=== PATIENT | female | born 1990 | race Caucasian/White ===

== ENCOUNTER 2017-10-22 18:08 | Emergency (ER) | payer SELFPAY ==
[~2017-10-22] VITALS: Ht 170.2 cm; Wt 118.2 kg
[2017-10-22 18:10] VITALS: BP 134/78; PULSE 101; TEMP 97.8
[2017-10-22] MEDS ORDERED: NORCO 325 MG-51 TAB PO (18:36)
[2017-10-22] MEDS ORDERED: AMOXICILLIN 50500 MG PO (18:36)
== END 2017-10-22 19:08 | disposition home or self-care (01) ==
LOC: COL.ER 18:08
DX: K02.9 Dental caries, unspecified (principal); F17.210 Nicotine dependence, cigarettes, uncomplicated

== ENCOUNTER 2018-03-30 23:55 | Emergency (ER) | payer SELFPAY ==
[~2018-03-30] VITALS: Ht 162.6 cm; Wt 100.0 kg
[~2018-03-30 23:55] MED LIST: AMOXICILLIN 50500 MG PO; NORCO 325 MG-51 TAB PO
[2018-03-30 23:59] VITALS: TEMP 98
[2018-03-31 00:30] LABS: COLLECTION METHOD CLEAN CATCH
[2018-03-31 00:38] LABS: BASO % 0.4 % (0.0-2.0); EOS # 0.1 (0.0-0.7); EOS % 1.1 % (0-4.0); GRAN # 8.7 (1.4-6.5); GRAN % 79.6 % (42.2-75.2); HEMOGLOBIN 13.1 g/dl (12.5-16.0); LYMPH # 1.4 (1.2-3.4); LYMPH % 13.1 % (20.0-51.0); MEAN CELL VOLUME 84 fl (80.0-100.0); MEAN CORPUSCULAR HEMOGLOBIN 28 pg (27.0-31.0); MEAN CORPUSCULAR HGB CONC 34 g/dl (33.0-37.0); MEAN PLATELET VOLUME 9.6 fl (7.4-10.4); MONO # 0.6 (0.1-0.6); MONO % 5.5 % (1.7-9.3); PLATELET COUNT 257 K/mm3 (130-400); RED BLOOD COUNT 4.64 M/mm3 (4.10-5.30); REDCELL DISTRIBUTION WIDTH-CV 13.2 % (11.5-14.5)
[2018-03-31] MEDS ORDERED: MARNATAL-F1 CAP PO (00:39)
[2018-03-31 00:45] LABS: MUCOUS Present /lpf; PH 6 (5-8); URINE APPEARANCE Hazy; URINE BACTERIA Rare /hpf; URINE BILIRUBIN Negative (NEGATIVE); URINE BLOOD Negative (NEGATIVE); URINE COLOR Yellow; URINE GLUCOSE Negative (NEGATIVE); URINE KETONE Trace (NEGATIVE); URINE LEUKOCYTE ESTERASE Negative (NEGATIVE); URINE NITRATE Negative (NEGATIVE); URINE PROTEIN(semi-quant) Negative (NEGATIVE); URINE RBC 0-2 /hpf; URINE UROBILINOGEN Negative (NEGATIVE)
[2018-03-31 00:49] LABS: ALBUMIN 4.1 gm/dL (3.5-5.0); BILIRUBIN,TOTAL 0.4 mg/dL (0.0-1.0); CALCIUM 9.3 mg/dL (8.4-10.2); CREATININE, serum 0.66 mg/dL (0.52-1.25); POTASSIUM 3.8 mmol/L (3.4-5.0); TOTAL PROTEIN 7.7 gm/dL (6.4-8.2)
[2018-03-31] MEDS ORDERED: PHENERGAN 25 TA25 MG PO (02:40)
[2018-03-31 02:53] VITALS: BP 132/74; PULSE 82
== END 2018-03-31 02:54 | disposition home or self-care (01) ==
LOC: COL.ER 23:55
PROVIDERS: Physician Assistant
DX: O21.9 Vomiting of pregnancy, unspecified (principal); O99.89 Other specified diseases and conditions complicating pregnancy, childbirth and the puerperium; R19.7 Diarrhea, unspecified; Z3A.01 Less than 8 weeks gestation of pregnancy

== ENCOUNTER 2018-09-06 20:55 | Outpatient (CLI) | payer MEDICAID ==
[~2018-09-06] VITALS: Ht 172.7 cm; Wt 123.6 kg
[~2018-09-06 20:55] MED LIST changes: +MARNATAL-F1 CAP PO; +PHENERGAN 25 TA25 MG PO
[2018-09-06 21:20] VITALS: BP 130/69; PULSE 101; TEMP 97.9
[2018-09-06 21:33] LABS: COLLECTION METHOD CATHETER
[2018-09-06 21:34] VITALS: BP 130/69; PULSE 101; TEMP 97.9
[2018-09-06 21:49] LABS: AMORPHOUS CRYSTAL Present /uL; MUCOUS Present /lpf; PH 7 (5-8); SQUAMOUS EPITHELIAL 0-2 /hpf; URINE APPEARANCE Cloudy; URINE BACTERIA None Seen /hpf; URINE BILIRUBIN Negative (NEGATIVE); URINE BLOOD Negative (NEGATIVE); URINE COLOR Yellow; URINE GLUCOSE 1+ (NEGATIVE); URINE KETONE Negative (NEGATIVE); URINE LEUKOCYTE ESTERASE Negative (NEGATIVE); URINE NITRATE Negative (NEGATIVE); URINE PROTEIN(semi-quant) Negative (NEGATIVE); URINE RBC 0-2 /hpf; URINE UROBILINOGEN Negative (NEGATIVE); URINE WBC None Seen /hpf
== END 2018-09-06 22:30 | disposition home or self-care (01) ==
LOC: LDRO 20:55
PROVIDERS: Obstetrics & Gynecology
DX: O99.89 Other specified diseases and conditions complicating pregnancy, childbirth and the puerperium (principal); R33.9 Retention of urine, unspecified; Z3A.37 37 weeks gestation of pregnancy

== ENCOUNTER 2018-10-28 21:29 | Outpatient (CLI) | payer MEDICAID ==
[~2018-10-28] VITALS: Ht 165.1 cm; Wt 135.0 kg
--- NOTE | 2018-10-28 21:35 | NUR ---
Pt arrives to unit ambulatory with complaint of decreased movement. Pt states she hasn't felt her baby move since this morning. Pt is a G1 and 35 weeks. Pt denies feeling contractions, LOF, or vaginal bleeding. Denies headaches, blurry vision, or RUQ pain. EFM and toco explained and applied. Vital signs obtained. Assessment started. Plan of care discussed, all questions answered.
[2018-10-28 21:45] VITALS: BP 123/64; PULSE 115; TEMP 97.8
--- NOTE | 2018-10-28 22:20 | NUR ---
Pt able to feel baby move. Pt discharged home at this time. kick count education provided. Discharge instructions reviewed, pt verbalized understanding. Pt seen ambulating off unit.
== END 2018-10-28 22:20 | disposition home or self-care (01) ==
LOC: LDRO 21:29
DX: O36.8130 Decreased fetal movements, third trimester, not applicable or unspecified (principal); Z3A.35 35 weeks gestation of pregnancy

== ENCOUNTER 2018-11-24 01:35 | Inpatient (IN) | payer MEDICAID ==
[2018-11-24] VITALS (75 sets, daily range): BP systolic 90–161; BP diastolic 44–86; PULSE 81–122; TEMP 97.9–99.8
[~2018-11-24] VITALS: Ht 170.2 cm; Wt 137.3 kg
--- NOTE | 2018-11-24 01:40 | NUR ---
Pt arrived on unit via wheelchair escorted by family with complaints of SROM. Pt reports large gush of clear fluid at 0030. Pt reports contractions worsening with SROM. Pt also reports normal movement. EFM and toco monitors started. Vital signs WNL. Amnitrace positive. SVE by this RN . Spoke with Dr. Velázquez regarding pt's arrival. SVE and FHR tracing reviewed. Orders for labor admission received. Plan of care reviewed with pt.
[2018-11-24 03:26] LABS: BASO % 0.2 % (0.0-2.0); EOS # 0.1 (0.0-0.7); EOS % 0.4 % (0-4.0); GRAN # 11.8 (1.4-6.5); GRAN % 83.5 % (42.2-75.2); HEMATOCRIT 34.1 % (37.0-47.0); HEMOGLOBIN 11.4 g/dl (12.5-16.0); LYMPH # 1.4 (1.2-3.4); LYMPH % 10.1 % (20.0-51.0); MEAN CELL VOLUME 84 fl (80.0-100.0); MEAN CORPUSCULAR HEMOGLOBIN 28 pg (27.0-31.0); MEAN CORPUSCULAR HGB CONC 33 g/dl (33.0-37.0); MONO # 0.8 (0.1-0.6); MONO % 5.3 % (1.7-9.3); PLATELET COUNT 206 K/mm3 (130-400); RED BLOOD COUNT 4.04 M/mm3 (4.10-5.30); REDCELL DISTRIBUTION WIDTH-CV 15.1 % (11.5-14.5)
[2018-11-24 03:43] LABS: TRICYCLIC ANTIDEPRESS URINE NEGATIVE
--- NOTE | 2018-11-24 04:00 | NUR ---
0400- Pt requesting in sit on the edge of the bed while waiting for TEXTILE SCREEN PRINTER for epidural placement. SPO2 monitor started. EFM intermittently tracing maternal HR as coorelates with SPO2 monitor. 0411- Sudheer Belcher CRNA at the bedside for epidural placement. 0422- Single shot given per TEXTILE SCREEN PRINTER. See anesthesia record for details. 0430- Assisted pt back to bed in supine with left wedge position. EFM and toco monitors adjusted. 0436- Audible FHR decel down to 90's. Repositioned pt to right lateral. FHR returned to baseline 150's. 0445- FHR decel down to 80's. O2 at 10L via facemask started. FHR back to baseline 155.
--- NOTE | 2018-11-24 06:20 | NUR ---
0620-Recieved bedside shift report from AMISH Pate Patient RL with IVF to left forearm, ANGUS inplace, [place] to DD with clear yellow urine, and oxygen via nc at 10 l/min. Reviewed plan of care, no current needs. VSS will continue to monitor.
--- NOTE | 2018-11-24 07:30 | NUR ---
0730-Dr. Estrada on unit. Reviews FHR monitor. In to see patient and discuss plan of care. No new orders at this time.
--- NOTE | 2018-11-24 08:45 | NUR ---
0845-Dr. Estrada on unit, reviews R monitor. 0850-SVE by this RN, /-2 bloody show. Repositioned LL, peanut ball removed. Updated MD on SVE orders to start pitocin. 09-Pitocin started per orders. Verified by Lindsay WELLINGTON.
--- NOTE | 2018-11-24 09:35 | NUR ---
0935-DIFFICULTY TRACING FHR DUE TO MATERNAL HABITUS AND MOVEMENT. RN ADJUSTS EFM. 1025-SVE 6-/-2, REPOSITONED RL ADJUSTED EFM, ORAL TEMP 99.2 DEGREES F. LR BAG #3 UP, SEE EMAR 1050-MD CALLS UNIT FOR AN UPDATE, REVIEWED FHR MONITOR AND SVE WITH MD. NO NEW ORDERS. 1110-REPOSITIONED LL, DIFFICULTY TRACING FHR RN FREQUENTLY READJUSTING EFM. 1200-PATIENT COMPLAINS OF HEADACHE. UPDATED MD OF PATIENS COMPLAINT, REVIEWED VSS WITH MD. ORDER FOR 1 GRAM PO TYLENOL NOW, GIVEN, SEE EMAR. 1210-PATIENT REQUESTS SVE, /-2 BY THIS RN REPOSITIONED HF WITH LEFT HIP WEDGE. DIFFICULTY TRACING FHR. RN FREQUENTLY READJUSTS EFM. 1215-DR. CHADWICK ON UNIT, IN TO SEE PATIENT AND UPDATE ON PLAN OF CARE. NO NEW ORDERS. 1320-SVE BY THIS RN /-2, REPOSITIONED WL WITH PEANUT. ORAL TEMP 98.6 1427-SVE /-1, REPOSITIONED WR. 1450-INCREASED PIT TO 8MU/MIN 1500-DR. CHADWICK ON UNIT, SVE BY /+1, ORDERS TO HOLD PIT AT 8MU/MIN UNLESS CONTRACTIONS START TO SPACE OUT. REPOSITONED BACK WR WITH PEANUT BALL.
--- NOTE | 2018-11-24 18:25 | NUR ---
1824- BEDSIDE REPORT RECIEVED. 1836- DR CHADWICK AT BEDSIDE AND ASSESSES PT PROGRESS. HE ANSWERS PT QUESTIONS AND UPDATES ON PLAN OF CARE. PT ENCOURAGED TO CONTINUE PUSHING WITH CONTRACTIONS. 1922- DR CHADWICK AT BEDSIDE AND ASSESSES PT PROGRESS. HE ANSWERS PT QUESTIONS AND UPDATES ON PLAN OF CARE. PT ENCOURAGED TO CONTINUE PUSHING WITH CONTRACTIONS. 2033- DR CHADWICK AT BEDSIDE AND ASSESSES PT PROGRESS. PT HAS MADE MINIMAL PROGRESS. HE DISCUSSES ALTERNATIVE METHODS FOR DELIVERY INCLUDING FORCEPS AND VACUUM. HE ANSWERS PT QUESTIONS AND DISCUSSES RISK AND BENEFIT OF EACH. PT AGREES TO ATTEMPT VACUUM DELIVERY. NURSERY UPDATED ON PLAN OF CARE. 2044- VACUUM TIME OUT AND VACUUM PLACED PER DR CHADWICK. PT CONTINUES TO PUSH WITH CONTRACTIONS AND DR CHADWICK APPLIES TRACTION WITH THE VACUUM. TOTAL TIME OF VACUUM IN PLACE IS 18MIN. TOTAL TRACTION TIME OF VACUUM IS 200SEC. TOTAL POPOFFS 4. 2102- VACUUM ASSISTED VAGINAL DELIVERY OF VIABLE FEMALE. TO MOTHER'S ABDOMEN AND CARE OF NURSERY STAFF. CORD GASES OBTAINED BY DR CHADWICK. 2107- SPONTANEOUS DELIVERY OF PLACENTA, EXAMINED BY DR CHADWICK, REPAIR OF THIRD DEGREE IN PROGRESS. 2129- REPAIR COMPLETE. PERICARE PROVIDED. ICEPACK TO PERINEUM. FEET DOWN FROM FOOTPLATES AND RECOVERY STARTED.
--- NOTE | 2018-11-24 19:17 | NUR ---
1650-SVE /+2, DR. CHADWICK UPDATED ON PATIENT. WILL BEGIN PUSHING. 1715-GAUTAM DISCONTINUED DRAINED 650ML RED TO BROWN SEDIMENT URINE. 1718-PATIENT BEINGS PUSHING WITH CONTRACTIONS. RN COACHES PATIENT. PATIENT MOVES VERTEX VERY LITTLE. 1730-EPIDURAL PAUSED. PIT INCREASED TO 10MU/MIN. CONTINUE TO PUSH WITH PATIENT THROUGH CONTRACTIONS. 1750-EPIDURAL RESUMED. PATIENT MAKING MIN PROGRESS OF MOVING VERTEX, ENCOURAGED PATIENT. PATIENT TEARFUL. 1805-DR. CHADWICK UPDATED ON PATIENT. SEE PHYSICIAN NOTIFICATION. 1830-REPORTED OFF TO AMISH HEWITT WHO ASSUMES CARE OF PATIENT AT THIS TIME.
[2018-11-25 00:30] VITALS: BP 110/51; PULSE 115
--- NOTE | 2018-11-25 01:40 | NUR ---
0140- PT STILL UNABLE TO LIFT LEGS OFF BED AT THIS TIME. STATES SHE IS TOO TIRED TO MOVE ANYWAY. NURSE OFFERS BEDPAN SO PT MAY VOID, PT DECLINES SAYING SHE IS TOO TIRED TO "PUSH PEE OUT." NURSE OFFERS STRAIGHT CATH AND PT AGREES. 0145- STRAIGHT CATH FOR 500ML. PERICARE, CLEAN GOWN, BUTTOCKS PAD, AND ICEPACK PROVIDED. PT BOOSTED UP IN BED. PT ENCOURAGED TO MOVE HER LEGS AROUND IN BED TO HELP EPIDURAL WEAR OFF. PT VERBALIZES UNDERSTANDING.
--- NOTE | 2018-11-25 02:37 | NUR ---
Assumed care at this time.
[2018-11-25 04:30] VITALS: BP 93/44; PULSE 104; TEMP 98.2
--- NOTE | 2018-11-25 04:30 | NUR ---
Woke at this time. Able to hold legs off bed bilaterally. VS obtained. Fundus firm, midline at the umbilicus. Labia majora noted to be swollen. Ice pack to perineum. Ambulated well to room at this time. Upon entering room pt reports needing to void. Voided 100mls; educated on perineum care. Ambulated to bed and oriented to room. Questions invited and answered.
[2018-11-25 07:03] LABS: HEMATOCRIT 27.5 % (37.0-47.0); HEMOGLOBIN 8.7 g/dl (12.5-16.0)
[2018-11-25 07:15] VITALS: BP 109/48; PULSE 97; TEMP 97.8
--- NOTE | 2018-11-25 09:18 | NUR ---
Initial visit; Mom thanked Civil Defense Director for offering congratulations and God's blessings for the of their daughter. Civil Defense Director thanked family for choosing [facility].
[2018-11-25 10:50] VITALS: BP 120/70; PULSE 106; TEMP 97.8
[2018-11-25 16:12] VITALS: BP 115/57; PULSE 101; TEMP 97.6
--- NOTE | 2018-11-25 18:46 | NUR ---
In bed feeding baby at bottle. Call light and belongings in reach. Cluttered cleared and trash taken out by RN. D/c board updated, POC for evening discussed.
--- NOTE | 2018-11-25 19:05 | NUR ---
BEDSIDE REPORT RECEIVED. CARE TAKEN OVER BY THIS RN.
[2018-11-25 19:28] VITALS: BP 104/54; PULSE 104; TEMP 97.7
[2018-11-26 07:18] VITALS: BP 100/48; PULSE 88; TEMP 97.5
[2018-11-26] MEDS ORDERED: PERCOCET 325 MG1 TA2 PO (08:15)
[2018-11-26] MEDS ORDERED: IBU600 MG PO (08:15)
--- NOTE | 2018-11-26 13:29 | NUR ---
JENN met with patient. Father of baby is currently in retirement but will be getting out in January and will be involved. Patient's reports she has multiple people for support, including her aunt, neighbor, grandma, and FOB's mother. She also reports she has WIC and a carseat. 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 Patient's drug screens have also come back negative. JENN provided resouce packet.
[2018-11-26 16:54] VITALS: BP 127/73; PULSE 109; TEMP 98
[2018-11-26 21:00] VITALS: BP 101/54; PULSE 104; TEMP 98
--- NOTE | 2018-11-26 23:55 | NUR ---
0004- DISCHARGE INSTRUCTIONS FOR PT GIVEN AND QUESTIONS ANSWERED. PT GIVEN SCRIPT FOR PERCOCET. BORDER STATUS DISCUSSED AND PT DENIES FURTHER QUESTIONS. PAPERWORK SIGNED. 5533- PT DISMISSED TO BORDER STATUS AT THIS TIME.
== END 2018-11-26 23:59 | disposition home or self-care (01) | DRG 768 ==
LOC: LDRO 01:35 → LDR 02:39 → OB 02:39
PROVIDERS: Obstetrics & Gynecology; ADMIT Obstetrics & Gynecology
PROC: 10D07Z6 Extraction of Products of Conception, Vacuum, Via Natural or Artificial Opening (ICD-10-PCS; principal; 2018-11-24)
PROC: 0DQR0ZZ Repair Anal Sphincter, Open Approach (ICD-10-PCS; 2018-11-24)
PROC: 0W8NXZZ Division of Female Perineum, External Approach (ICD-10-PCS; 2018-11-24)
DX: O42.02 Full-term premature rupture of membranes, onset of labor within 24 hours of rupture (principal); Z37.0 Single live birth; O70.20 Third degree perineal laceration during delivery, unspecified; O99.214 Obesity complicating childbirth; Z3A.38 38 weeks gestation of pregnancy; O36.63X0 Maternal care for excessive fetal growth, third trimester, not applicable or unspecified; O76 Abnormality in fetal heart rate and rhythm complicating labor and delivery
CPT/HCPCS: J2590; J2795; J7120

== ENCOUNTER 2018-12-29 18:51 | Emergency (ER) | payer MEDICAID ==
[~2018-12-29] VITALS: Ht 165.1 cm; Wt 130.0 kg
[~2018-12-29 18:51] MED LIST changes: +IBU600 MG PO; +PERCOCET 325 MG1 TA2 PO
[2018-12-29 20:04] LABS: COLLECTION METHOD CLEAN CATCH
[2018-12-29 20:13] LABS: BASO % 0.3 % (0.0-2.0); EOS # 0.1 (0.0-0.7); GRAN # 5.2 (1.4-6.5); GRAN % 81.4 % (42.2-75.2); HEMOGLOBIN 11.2 g/dl (12.5-16.0); LYMPH # 0.7 (1.2-3.4); LYMPH % 10.4 % (20.0-51.0); MEAN CELL VOLUME 83 fl (80.0-100.0); MEAN CORPUSCULAR HEMOGLOBIN 26 pg (27.0-31.0); MEAN CORPUSCULAR HGB CONC 31 g/dl (33.0-37.0); MEAN PLATELET VOLUME 9.3 fl (7.4-10.4); MONO # 0.4 (0.1-0.6); MONO % 5.6 % (1.7-9.3); PLATELET COUNT 243 K/mm3 (130-400); RED BLOOD COUNT 4.36 M/mm3 (4.10-5.30); REDCELL DISTRIBUTION WIDTH-CV 14.9 % (11.5-14.5)
[2018-12-29 20:24] LABS: PH 6 (5-8); URINE APPEARANCE Hazy; URINE BACTERIA None Seen /hpf; URINE BILIRUBIN Negative (NEGATIVE); URINE BLOOD Negative (NEGATIVE); URINE COLOR Yellow; URINE GLUCOSE Negative (NEGATIVE); URINE KETONE Negative (NEGATIVE); URINE LEUKOCYTE ESTERASE 2+ (NEGATIVE); URINE NITRATE Negative (NEGATIVE); URINE PROTEIN(semi-quant) Negative (NEGATIVE); URINE UROBILINOGEN Negative (NEGATIVE)
[2018-12-29 20:42] LABS: ALBUMIN 4.3 gm/dL (3.5-5.0); BILIRUBIN,TOTAL 0.2 mg/dL (0.0-1.0); CALCIUM 9.4 mg/dL (8.4-10.2); CREATININE, serum 0.69 mg/dL (0.52-1.25); MAGNESIUM 1.6 mg/dL (1.6-2.3); POTASSIUM 4.3 mmol/L (3.4-5.0); TOTAL PROTEIN 7.6 gm/dL (6.4-8.2)
[2018-12-29] MEDS ORDERED: CEFTIN500 MG PO (22:36)
[2018-12-29] MEDS ORDERED: NORCO 325 MG-51 TAB PO (22:36)
[2018-12-29] MEDS ORDERED: TAMIFLU 75MG75 MG PO (22:36)
[2018-12-29] MEDS ORDERED: FLEXERIL 1010 MG/TAB PO (22:36)
[2018-12-29 23:14] VITALS: BP 117/70; PULSE 88; TEMP 97.7
== END 2018-12-29 23:15 | disposition home or self-care (01) ==
LOC: COL.ER 18:51
PROVIDERS: Emergency Medicine
DX: N39.0 Urinary tract infection, site not specified (principal); M54.41 Lumbago with sciatica, right side; J10.1 Influenza due to other identified influenza virus with other respiratory manifestations
CPT/HCPCS: A4216; J0696; J1170; J7030

== ENCOUNTER 2019-08-29 21:39 | Emergency (ER) | payer SELFPAY ==
[~2019-08-29] VITALS: Ht 165.1 cm; Wt 118.2 kg
[~2019-08-29 21:39] MED LIST changes: +CEFTIN500 MG PO; +FLEXERIL 1010 MG/TAB PO; +TAMIFLU 75MG75 MG PO
[2019-08-29 21:43] VITALS: BP 115/59; TEMP 97.8
[2019-08-29] MEDS ORDERED: NORCO 325 MG-51 TAB PO (22:28)
[2019-08-29] MEDS ORDERED: PEN-VEE K500 MG PO (22:28)
[2019-08-29 22:39] VITALS: PULSE 90
== END 2019-08-29 22:41 | disposition home or self-care (01) ==
LOC: COL.ER 21:39
DX: K04.7 Periapical abscess without sinus (principal); Z87.891 Personal history of nicotine dependence

== ENCOUNTER 2019-09-05 00:17 | Emergency (ER) | payer SELFPAY ==
[~2019-09-05] VITALS: Ht 165.1 cm; Wt 118.2 kg
[~2019-09-05 00:17] MED LIST changes: +PEN-VEE K500 MG PO
[2019-09-05 00:26] VITALS: BP 136/72; TEMP 97.3
[2019-09-05] MEDS ORDERED: CLEOCIN HC150 MG/CAP PO (00:53)
[2019-09-05 01:10] VITALS: PULSE 74
== END 2019-09-05 01:10 | disposition home or self-care (01) ==
LOC: COL.ER 00:17
DX: K04.7 Periapical abscess without sinus (principal)
CPT/HCPCS: J1885